=== PATIENT | male | born 2000 | race Caucasian/White ===

== ENCOUNTER 2022-11-16 07:50 | Outpatient (CLI) | payer MEDICAID, SELFPAY ==
--- NOTE | 2022-11-16 08:13 | USCV_ITS ---
Ruben Lombardi Age: 22 Gender: M : 2000 Exam Date: 11/16/2022 08:18 Ordering Phys: Hernandez Lau MD Technologist: Belkis Perez Exam Location: [facility] [place] Indication: SVT BP: / HR: 61 Rhythm: Sinus Technical Quality: Adequate MEASUREMENTS (Male / Female) Normal Values 2D ECHO LV Diastolic Diameter PLAX 3.9 cm 4.2 - 5.9 / 3.9 - 5.3 cm LV Systolic Diameter PLAX 2.9 cm LV Chamber Size 3.5 cm IVS Diastolic Thickness 1.0 cm 0.6 - 1.0 / 0.6 - 0.9 cm IVS Systolic Thickness 1.5 cm LVPW Diastolic Thickness 1.1 cm 0.6 - 1.0 / 0.6 - 0.9 cm LVPW Systolic Thickness 1.6 cm RV Chamber Size 3.2 cm LVOT Diameter 2.1 cm LV Ejection Fraction 2D Teich 51.0 % LV Ejection Fraction MOD 2C 67.5 % LV Ejection Fraction 2C AL 69.3 % LA Diameter 2.5 cm LA Width 2.3 cm LA Height 3.3 cm RA Width 3.7 cm RA Height 3.1 cm Aorta at Sinotubular Diameter 2.7 cm IVC Diameter 1.3 cm M-MODE Aortic Annulus Diameter 3.4 cm LA Ao Ratio MM 0.9 MV E Point Septal Separation 0.3 cm DOPPLER AV Peak Velocity 114.0 cm/s LVOT Peak Velocity 81.0 cm/s AV Area Cont Eq vti 2.3 cm squared AV Area Cont Eq pk 2.4 cm squared MV Area PHT 5.0 cm squared Mitral E to A Ratio 1.9 MV E' Velocity 50.0 cm/s Mitral E to MV E' Ratio 5.3 Mitral E to LV E' Lateral Ratio 5.0 Mitral E to LV E' Septal Ratio 5.6 TR Peak Velocity 87.9 cm/s TR Peak Gradient 3.1 mmHg TR Mean Velocity 59.3 cm/s TR Mean Gradient 1.6 mmHg TR Velocity Time Integral 16.6 cm TV Peak E Velocity 80.0 cm/s Right Atrial Pressure 3.0 mmHg Pulmonary Artery Systolic Pressu 6.1 mmHg RV Acceleration Time 0.1 s RV Ejection Time 0.3 s RV AcT/ET 0.4 FINDINGS Left Ventricle Normal left ventricular size and systolic function, EF 59 %. No regional wall motion abnormalities. Right Ventricle Normal right ventricular size and systolic function. Right Atrium The right atrium is normal in size. Left Atrium The left atrium is normal in size. Mitral Valve No gross abnormalities noted. Trace mitral valve regurgitation. Aortic Valve No gross abnormalities noted Tricuspid Valve No gross abnormalities noted Pulmonic Valve No gross abnormalities noted Pericardium Normal pericardium without effusion. Aorta Normal ascending aorta dimension. IVC The inferior vena cava appears normal. CONCLUSIONS Normal left ventricular size and systolic function, EF 59 %. No regional wall motion abnormalities. Trace mitral valve regurgitation. Normal cardiac chamber sizes. No intracardiac shunts by color-flow Doppler examination No significant stenotic or regurgitant lesions. There is no pericardial effusion. There are no intracardiac masses. No similar previous studies are available for comparison Dr Crista Elkins MD LOCATED WITHIN [facility] (Electronically Signed) Final Date: 16 November 2022 13:44 S
== END 2022-11-16 07:51 | disposition home or self-care (01) ==
LOC: RAD 07:51
PROVIDERS: PCP Family Medicine; Visit Provider Family Medicine
DX: I47.1 Supraventricular tachycardia (principal); I34.0 Nonrheumatic mitral (valve) insufficiency
CPT/HCPCS: 93306